=== PATIENT | female | born 1995 | race Caucasian/White ===

== ENCOUNTER → 2020-10-31 | Outpatient (CLI) | payer OTHER ==
[~2020-10-31] MED LIST: AMOX875 PO; BIRTH CONTROL; CEPH500 PO; HYDACE5 PO; PHENA200 PO; PROM25 PO; SULTRIDS PO; TOBDEXOPSU BOTHEYES
== END ==
LOC: LAB SHORT 08:39 → LAB 08:39
DX: J02.9 Acute pharyngitis, unspecified (principal)
CPT/HCPCS: 87081

== ENCOUNTER → 2020-11-22 | Outpatient (CLI) | payer OTHER ==
[2020-11-23 14:29] LABS: Candida species (DNA Probe) Negative (NEGATIVE); G. vaginalis (DNA Probe) Negative (NEGATIVE); T. vaginalis (DNA Probe) Negative (NEGATIVE)
[2020-11-24 05:08] LABS: CHLAMYDIA TRACHOMATIS, NAA Negative (Negative)
== END ==
LOC: LAB 17:34 → LAB SHORT 17:34
PROVIDERS: Family Medicine
DX: N89.8 Other specified noninflammatory disorders of vagina (principal)
CPT/HCPCS: 87480; 87491; 87510; 87591; 87660

== ENCOUNTER → 2021-09-15 | Outpatient (CLI) | payer SELFPAY ==
[2021-09-15 14:25] LABS: Candida species (DNA Probe) Negative (NEGATIVE); G. vaginalis (DNA Probe) Positive (NEGATIVE); T. vaginalis (DNA Probe) Negative (NEGATIVE)
== END | disposition home or self-care (01) ==
LOC: LAB 10:08 → LAB SHORT 10:08
PROVIDERS: Family Medicine
DX: Z01.419 Encounter for gynecological examination (general) (routine) without abnormal findings (principal); R89.5 Abnormal microbiological findings in specimens from other organs, systems and tissues
CPT/HCPCS: 87480; 87510; 87660

== ENCOUNTER → 2022-05-21 | Outpatient (CLI) | payer SELFPAY ==
[2022-05-22 10:29] LABS: Candida species (DNA Probe) Negative (NEGATIVE); G. vaginalis (DNA Probe) Negative (NEGATIVE); T. vaginalis (DNA Probe) Positive (NEGATIVE)
[2022-05-23 01:10] LABS: CHLAMYDIA TRACHOMATIS, NAA Negative (Negative)
== END | disposition home or self-care (01) ==
LOC: LAB SHORT 12:02 → LAB 12:02
PROVIDERS: Family Medicine
DX: Z11.3 Encounter for screening for infections with a predominantly sexual mode of transmission (principal); N76.0 Acute vaginitis
CPT/HCPCS: 87480; 87491; 87510; 87591; 87660

== ENCOUNTER → 2022-08-26 | Outpatient (CLI) | payer SELFPAY ==
[2022-08-27 12:02] LABS: Candida species (DNA Probe) Negative (NEGATIVE); G. vaginalis (DNA Probe) Positive (NEGATIVE); T. vaginalis (DNA Probe) Negative (NEGATIVE)
== END | disposition home or self-care (01) ==
LOC: LAB SHORT 17:08 → LAB 17:08
PROVIDERS: Family Medicine
DX: N76.0 Acute vaginitis (principal)
CPT/HCPCS: 87480; 87510; 87660

== ENCOUNTER → 2024-03-10 | Outpatient (CLI) | payer OTHER ==
[2024-03-10 20:31] LABS: Candida Group, PCR NOT DETECTED (NOT DETECT); Candida glabrata-krusei, PCR NOT DETECTED (NOT DETECT)
[2024-03-10 22:51] LABS: Bacterial Vaginosis PCR Positive (NEGATIVE)
[2024-03-15 08:05] LABS: APTIMA MEDIA TYPE Unisex Swab; C. TRACHOMATIS BY TMA Negative (Negative); N. GONORRHOEAE BY TMA Negative (Negative); SPECIMEN SOURCE Cervical/Vag
== END | disposition home or self-care (01) ==
LOC: LAB SHORT 17:29
PROVIDERS: Obstetrics & Gynecology
DX: Z11.3 Encounter for screening for infections with a predominantly sexual mode of transmission (principal); N76.0 Acute vaginitis; B96.89 Other specified bacterial agents as the cause of diseases classified elsewhere
CPT/HCPCS: 81515; 87491; 87591

== ENCOUNTER 2025-01-09 10:11 | Observation (INO) | payer BC ==
[2025-01-09] VITALS (16 sets, daily range): BP systolic 91–132; BP diastolic 50–89
[~2025-01-09] VITALS: Ht 160 cm; Wt 77.1 kg
[~2025-01-09 10:11] MED LIST changes: +CYCL10 PO; +LIDO700A20 TOP
[2025-01-09 10:41] LABS: BASOPHILS ABSOLUTE AUTO 0.05 K/mm3 (0.00-0.23); BASOPHILS PERCENT AUTO 1 % (0-2); EOSINOPHILS ABSOLUTE AUTO 0.04 K/mm3 (0.00-0.68); EOSINOPHILS PERCENT AUTO 1 % (0-6); Hematocrit 30.1 % (33.0-51.0); Hemoglobin 10.4 g/dL (11.5-16.0); IMMATURE GRAN ABSOLUTE AUTO 0.03 K/mm3 (0.00-0.10); IMMATURE GRAN PERCENT AUTO 0 % (0-1); LYMPHOCYTES ABSOLUTE AUTO 1.65 K/mm3 (0.84-5.20); LYMPHOCYTES PERCENT AUTO 19 % (21-46); MONOCYTES ABSOLUTE AUTO 0.46 K/mm3 (0.16-1.47); MONOCYTES PERCENT AUTO 5 % (4-13); Mean Corpuscular HGB Conc 34.6 g/dL (31.5-36.5); Mean Corpuscular Volume 94 fL (80-100); NEUTROPHILS ABSOLUTE AUTO 6.39 K/mm3 (1.96-9.15); NEUTROPHILS PERCENT AUTO 74 % (41-73); NRBC ABSOLUTE 0.00 K/mm3 (0.00-0.02); NRBC Auto 0.0 /100 WBC (0.0-0.2); Platelet Count 213 K/mm3 (150-400); RDW Coefficient Variation 11.7 % (11.7-14.2); RDW Standard Deviation 40.0 fL (35.1-46.3)
[2025-01-09] MEDS ORDERED: NS 1,000 ML IV SCH (10:55)
[2025-01-09 11:15] LABS: Alanine Aminotransfer (ALT/SGP 36.0 U/L (12-78); Albumin, Blood 3.0 g/dL (3.4-5.0); Albumin/Globulin Ratio 1.0 (0.8-1.8); Anion Gap 7.0 mmol/L (3-11); Aspartate Aminotrans (AST/SGOT 21.0 U/L (12-37); Beta HCG, Quantitative, Serum 2309.0 mIU/mL (0-3); Bilirubin, Total 0.3 mg/dL (0.1-1.0); Blood Urea Nitrogen 10.0 mg/dL (8-24); CO2, Blood 25.0 mmol/L (21-32); Calcium, Blood 8.4 mg/dL (8.5-10.1); Chloride, Blood 109.0 mmol/L (98-108); Creatinine, Blood 0.55 mg/dL (0.40-1.00); Globulin, Blood 3.0 g/dL (2.2-4.0); Glucose, Blood 123.0 mg/dL (70-99); Potassium, Blood 3.6 mmol/L (3.5-5.5); Sodium, Blood 137.0 mmol/L (136-145); Total Protein, Blood 6.0 g/dL (6.4-8.2)
[2025-01-09] MEDS ORDERED: Midazolam HCl 1MG / ML 2ML Vial ONE (11:41)
[2025-01-09] MEDS ORDERED: FentaNYL Citrate 50 MCG/ML 2 ML Injection ONE ×2 (11:41→12:17)
[2025-01-09] MEDS ORDERED: FentaNYL Citrate 50 MCG/ML 2 ML Injection IV PRN ×2 (11:45→11:50)
[2025-01-09] MEDS ORDERED: Ondansetron HCl 2 MG / ML 2ML Vial IV PRN ×2 (11:45→13:10)
[2025-01-09] MEDS ORDERED: HYDROmorphone HCl/Pf 1MG SYR IV PRN ×3 (11:45→13:05)
[2025-01-09] MEDS ORDERED: SuccINYLCHOLINE Chloride 100 MG/5 ML 5MLSYR ONE (11:45)
--- NOTE | 2025-01-09 11:50 | NUR ---
History, Chart, Medications and Allergies reviewed before start of procedure.Pre-Op teaching done. Pt verbalizes understanding. Patient agrees with scheduled surgery. States recently consumed ice chips and ate toast approximately 3-4 hours ago. Jewlery removed and given to pt family, belongings under gurney.
[2025-01-09] MEDS ORDERED: Methylergonovine Maleate 0.2MG / ML 1ML Amp ONE (11:51)
[2025-01-09] MEDS ORDERED: Tranexamic Acid 100 ML IV ONE (11:51)
[2025-01-09 11:57] LABS: Calcium, Ionized (POC) 1.10 mmol/L (1.10-1.46); Chloride (POC) 106 mmol/L (98-108); Creatinine (POC) 0.6 mg/dL (0.6-1.0); Glucose (ISTAT POC) 104 mg/dL (70-99); Hematocrit (POC) 28.0 % (36.0-46.0); Hemoglobin (POC) 9.5 g/dL (12.0-16.0); Potassium (POC) 3.6 mmol/L (3.5-5.5); Sodium (POC) 139 mmol/L (135-148); Total CO2 (POC) 18 mmol/L (21-32)
[2025-01-09] MEDS ORDERED: Dexamethasone Sod Phos 10 MG/ML 1ML VIAL ONE (12:24)
[2025-01-09] MEDS ORDERED: Ondansetron HCl 2 MG / ML 2ML Vial ONE (12:24)
[2025-01-09] MEDS ORDERED: Phenylephrine HCl 100 MCG/ML-NS 10MLSYR (1MG/10ML) ONE (12:24)
[2025-01-09] MEDS ORDERED: Ketorolac Tromethamine 30mg Vial ONE (12:32)
[2025-01-09] MEDS ORDERED: FLU VACC TS2025-26(6MOS UP)/PF 45 MCG/0.5 ML SYRINGE IM SCH (13:05)
[2025-01-09] MEDS ORDERED: Metoclopramide HCl 5MG / ML 2ML Vial IV PRN (13:10)
[2025-01-09] MEDS ORDERED: Naloxone HCl 0.4MG / ML 1ML Vial IV PRN (13:10)
--- NOTE | 2025-01-09 13:56 | NUR ---
PT ARRIVED TO UNIT FROM PACU TRANSFERRED PT FROM [facility] TO BED. ORIENTED TO USE OF CALL LIGHT AND PLACED WITHIN REACH. MOD AMOUNT BLEEDING NOTED TO BEDDING. POD 0 D&C. FAMILY BEDSIDE.
--- NOTE | 2025-01-09 14:56 | NUR ---
UP TO VOID PT AMBULATED TO RESTROOM, VOIDED BUT THEN GOT LIGHT HEADED AND HAD RINGING IN EARS. ASSISTED BACK TO BED, PT STATES SYMPTOMS RESOLVING. ADVISED PT TO NOT GET UP WITHOUT STAFF ASSISTANCE FOR SAFETY. PT VERBALIZED UNDERSTANDING. CALL LIGHT IN REACH.
[2025-01-09 17:21] LABS: BASOPHILS ABSOLUTE AUTO 0.02 K/mm3 (0.00-0.23); BASOPHILS PERCENT AUTO 0 % (0-2); EOSINOPHILS ABSOLUTE AUTO 0.00 K/mm3 (0.00-0.68); EOSINOPHILS PERCENT AUTO 0 % (0-6); Hematocrit 23.0 % (33.0-51.0); Hemoglobin 7.9 g/dL (11.5-16.0); IMMATURE GRAN ABSOLUTE AUTO 0.07 K/mm3 (0.00-0.10); IMMATURE GRAN PERCENT AUTO 1 % (0-1); LYMPHOCYTES ABSOLUTE AUTO 0.64 K/mm3 (0.84-5.20); LYMPHOCYTES PERCENT AUTO 6 % (21-46); MONOCYTES ABSOLUTE AUTO 0.07 K/mm3 (0.16-1.47); MONOCYTES PERCENT AUTO 1 % (4-13); Mean Corpuscular HGB Conc 34.3 g/dL (31.5-36.5); Mean Corpuscular Volume 94 fL (80-100); NEUTROPHILS ABSOLUTE AUTO 9.21 K/mm3 (1.96-9.15); NEUTROPHILS PERCENT AUTO 92 % (41-73); NRBC ABSOLUTE 0.00 K/mm3 (0.00-0.02); NRBC Auto 0.0 /100 WBC (0.0-0.2); Platelet Count 199 K/mm3 (150-400); RDW Coefficient Variation 11.7 % (11.7-14.2); RDW Standard Deviation 39.8 fL (35.1-46.3)
[2025-01-09] MEDS ORDERED: Ketorolac Tromethamine 30mg Vial IV SCH (18:00)
--- NOTE | 2025-01-09 18:24 | NUR ---
DR MARIE IN TO SEE PT.
[2025-01-09] MEDS ORDERED: NS 500 ML IV SCH (18:40)
--- NOTE | 2025-01-09 18:47 | NUR ---
SUMMARY POST DAY 0 FOR D&C. PT HAVING LIGHT-MOD AMOUNT LIGHT RED VAGINAL DRAINAGE. PT TEARFUL AT TIMES. VSS. PT REPORTED LIGHT HEADED AND HEART RACING TWO TIMES PT GOT UP TO RESTROOM. 1 PERSON ASSIST. PT DENYING PAIN. 1700 HGB 7.9. PT ASKED FOR SOMETHING FOR ANXIETY. NOTIFIED DR MARIE ABOUT SYMPTOMS AND H&H AND FEELING OF ANXIETY. DR MARIE IN TO SEE PT THIS EVENING. ORDERING UNIT PRBCS W/H&H TO FOLLOW. PT RESTING IN BED W/FAMILY BEDSIDE. CALL LIGHT IN REACH. PT AWARE TO CALL FOR ASSISTANCE WHEN GETTING OOB.
--- NOTE | 2025-01-09 20:45 | NUR ---
PRBC INFUSING. VSS, LUNGS CLEAR, PT DENIES SOB. PT REP MILD DIZZINESS WHEN UP OOB. REP HX ANXIETY, REP OF PALPITATIONS AT BASELINE, DENIES CP/PRESSURE. ABD SOFT, TENDER TO PALP, PT REP PAIN MINIMAL, DENIES NEED FOR PAIN MEDS. PT HAVING SMALL AMT VAGINAL SPOTTING, REECE PAD CHANGED X1. SNACK GIVEN PER PT REQ. PT TO CALL FOR NEEDS/CONCERNS. PRIMARY RN UPDATED.
[2025-01-10 00:41] VITALS: BP 87/41
[2025-01-10 00:46] VITALS: BP 100/59
[2025-01-10 00:49] VITALS: BP 100/59
[2025-01-10 03:02] LABS: BASOPHILS ABSOLUTE AUTO 0.01 K/mm3 (0.00-0.23); BASOPHILS PERCENT AUTO 0 % (0-2); EOSINOPHILS ABSOLUTE AUTO 0.01 K/mm3 (0.00-0.68); EOSINOPHILS PERCENT AUTO 0 % (0-6); Hematocrit 20.8 % (33.0-51.0); Hemoglobin 7.3 g/dL (11.5-16.0); IMMATURE GRAN ABSOLUTE AUTO 0.06 K/mm3 (0.00-0.10); IMMATURE GRAN PERCENT AUTO 1 % (0-1); LYMPHOCYTES ABSOLUTE AUTO 1.67 K/mm3 (0.84-5.20); LYMPHOCYTES PERCENT AUTO 17 % (21-46); MONOCYTES ABSOLUTE AUTO 0.73 K/mm3 (0.16-1.47); MONOCYTES PERCENT AUTO 7 % (4-13); Mean Corpuscular HGB Conc 35.1 g/dL (31.5-36.5); Mean Corpuscular Volume 91 fL (80-100); NEUTROPHILS ABSOLUTE AUTO 7.46 K/mm3 (1.96-9.15); NEUTROPHILS PERCENT AUTO 75 % (41-73); NRBC ABSOLUTE 0.00 K/mm3 (0.00-0.02); NRBC Auto 0.0 /100 WBC (0.0-0.2); Platelet Count 151 K/mm3 (150-400); RDW Coefficient Variation 12.9 % (11.7-14.2); RDW Standard Deviation 42.5 fL (35.1-46.3)
[2025-01-10 03:44] VITALS: BP 108/50
--- NOTE | 2025-01-10 04:12 | NUR ---
SHIFT SUMMARY POD 1 S/P D&C; SCANT VAGINAL BLEEDING NOTED. ABD SOFT AND TENDER. VIVIAN SMALL AMOUNT OF PO. 1 UNIT PRBC INFUSED PER ORDERS. PT REPORTS FEELING BETTER OVERALL POST INFUSION. PT C/O DIZZINESS WITH AMBULATION PRIOR TO RECEIVING BLOOD. AWAITING POST INFUSION AMBULATION. IS VOIDING. IV PATENT/SL. PT DENIES PAIN AND NEED FOR MEDICATION T/O NIGHT. SOFT BP, NOW IMPROVING. PT CURRENTLY RESTING IN BED WITH CALL LIGHT IN REACH AND RESP EVEN/UNLABORED. PLAN TO GIVE REPORT TO ONCOMING RN.
--- NOTE | 2025-01-10 06:24 | NUR ---
UPDATE RN CALLED TO ROOM FOR SBA TO BATHROOM BY PATIENT. PT REPORTS JUST SLIGHT DIZZINESS AND OVERALL FEELS BETTER. VIVIAN AMBULATION TO BATHROOM WELL, STEADY ON FEET. VOIDED 400MLS. SCANT BLEEDING NOTED ON REECE PAD. PT BACK TO BED IND. FRESH ICE WATER, TEA AND SNACK PROVIDED PRN. PT DENIES PAIN. HAS CALL LIGHT IN REACH.
[2025-01-10 07:51] VITALS: BP 106/67
--- NOTE | 2025-01-10 08:05 | NUR ---
DR GUNTER IN TO SEE PT.
[2025-01-10] MEDS ORDERED: IBUP600 PO (08:19)
[2025-01-10] MEDS ORDERED: ACET500 PO (08:19)
[2025-01-10 08:53] VITALS: BP 116/59
--- NOTE | 2025-01-10 09:04 | NUR ---
discharging DR GUNTER IN TO SEE PT EARLIER THIS AM. MEETS CRITERIA FOR DC. REVIEWED DC INSTRUCTIONS W/PT; VERBALIZED UNDERSTANDING. SIGNED DC PAPERWORK. GETTING DRESSED AT THIS TIME. S.O. AT BEDSIDE.
--- NOTE | 2025-01-10 09:24 | NUR ---
DISCHARGED LEFT UNIT IN WC W/POSSESSIONS AND DC PAPERWORK IN HAND, ACCOMPANIED BY S.O.
== END 2025-01-10 09:11 | disposition home or self-care (01) ==
LOC: ER 10:11 → SURS 10:12 → ER 10:12 → SURS 10:13
PROVIDERS: Physician Assistant; ADMIT Obstetrics & Gynecology
PROC: 30233N1 Transfusion of Nonautologous Red Blood Cells into Peripheral Vein, Percutaneous Approach (ICD-10-PCS; 2025-01-09)
PROC: 10D17ZZ Extraction of Products of Conception, Retained, Via Natural or Artificial Opening (ICD-10-PCS; principal; 2025-01-09 12:00)
DX: O03.4 Incomplete spontaneous abortion without complication (principal); D62 Acute posthemorrhagic anemia; F41.9 Anxiety disorder, unspecified
CPT/HCPCS: 36415; 36430; 76801; 76998; 80047; 80053; 84702; 85014; 85025; 86850; 86900; 86901; 86923; 88305; 96360; 99285-25; A9270; G0378; J0330; J1100; J1885; J2210; J2250; J2371; J2405; J2704; J3010; J7030; J7120; P9016

== ENCOUNTER → 2025-01-15 | Outpatient (CLI) | payer BC ==
[~2025-01-15] MED LIST changes: +ACET500 PO; +IBUP600 PO
[2025-01-15 11:43] LABS: BASOPHILS ABSOLUTE AUTO 0.05 K/mm3 (0.00-0.23); BASOPHILS PERCENT AUTO 1 % (0-2); EOSINOPHILS ABSOLUTE AUTO 0.12 K/mm3 (0.00-0.68); EOSINOPHILS PERCENT AUTO 2 % (0-6); Hematocrit 25.2 % (33.0-51.0); Hemoglobin 8.4 g/dL (11.5-16.0); IMMATURE GRAN ABSOLUTE AUTO 0.05 K/mm3 (0.00-0.10); IMMATURE GRAN PERCENT AUTO 1 % (0-1); LYMPHOCYTES ABSOLUTE AUTO 1.88 K/mm3 (0.84-5.20); LYMPHOCYTES PERCENT AUTO 29 % (21-46); MONOCYTES ABSOLUTE AUTO 0.39 K/mm3 (0.16-1.47); MONOCYTES PERCENT AUTO 6 % (4-13); Mean Corpuscular HGB Conc 33.3 g/dL (31.5-36.5); Mean Corpuscular Volume 96 fL (80-100); NEUTROPHILS ABSOLUTE AUTO 4.06 K/mm3 (1.96-9.15); NEUTROPHILS PERCENT AUTO 62 % (41-73); NRBC ABSOLUTE 0.00 K/mm3 (0.00-0.02); NRBC Auto 0.0 /100 WBC (0.0-0.2); Platelet Count 298 K/mm3 (150-400); RDW Coefficient Variation 13.0 % (11.7-14.2); RDW Standard Deviation 44.5 fL (35.1-46.3)
[2025-01-15 12:27] LABS: Alanine Aminotransfer (ALT/SGP 75.0 U/L (12-78); Albumin, Blood 3.8 g/dL (3.4-5.0); Albumin/Globulin Ratio 1.2 (0.8-1.8); Anion Gap 8.0 mmol/L (3-11); Aspartate Aminotrans (AST/SGOT 42.0 U/L (12-37); Bilirubin, Total 0.3 mg/dL (0.1-1.0); Blood Urea Nitrogen 15.0 mg/dL (8-24); CO2, Blood 26.0 mmol/L (21-32); Calcium, Blood 9.1 mg/dL (8.5-10.1); Chloride, Blood 109.0 mmol/L (98-108); Creatinine, Blood 0.69 mg/dL (0.40-1.00); Globulin, Blood 3.1 g/dL (2.2-4.0); Glucose, Blood 107.0 mg/dL (70-99); Potassium, Blood 3.6 mmol/L (3.5-5.5); Sodium, Blood 139.0 mmol/L (136-145); Total Protein, Blood 6.9 g/dL (6.4-8.2)
== END ==
LOC: LAB 11:37 → LAB SHORT 11:37
PROVIDERS: Physician Assistant
DX: I10 Essential (primary) hypertension (principal); R53.1 Weakness; R42 Dizziness and giddiness
CPT/HCPCS: 80053; 85025